=== PATIENT | female | born 1970 | race African-American/Black ===

== ENCOUNTER 2016-03-08 17:30 | Emergency (ER) | payer OTHER, MEDICARE ==
[~2016-03-08 17:30] MED LIST: FLEXERIL10 MG PO; MOBIC 15MG15 MG PO; TRAMADOL50 MG PO
[2016-03-08] MEDS ORDERED: ROBAXIN-750750 M1 PO (18:26)
[2016-03-08] MEDS ORDERED: PERCOCET 5-3251 EACH PO (18:26)
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
[2016-03-08 18:32] VITALS: BP 130/80
== END 2016-03-08 18:33 ==
LOC: ERH 17:30
DX: S29.012A Strain of muscle and tendon of back wall of thorax, initial encounter (principal); V47.6XXA Car passenger injured in collision with fixed or stationary object in traffic accident, initial encounter

== ENCOUNTER 2016-05-04 18:50 | Emergency (ER) | payer OTHER, MEDICARE ==
[~2016-05-04 18:50] MED LIST changes: +PERCOCET 5-3251 EACH PO; +ROBAXIN-750750 M1 PO
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
== END 2016-05-04 19:20 ==
LOC: ERH 18:50
DX: F18.129 Inhalant abuse with intoxication, unspecified (principal); F10.10 Alcohol abuse, uncomplicated
CPT/HCPCS: 80307

== ENCOUNTER 2016-09-27 17:30 | Emergency (ER) | payer OTHER, MEDICARE ==
--- NOTE | 2016-09-27 17:57 | ED HEADACHE COMPLAINT ---
History of Present Illness General Chief Complaint: Headache Stated Complaint: SIB DR VALLE FOR REPEATED HEADACHES Source: patient Exam Limitations: no limitations Vital Signs & Intake/Output Vital Signs & Intake/Output Vital Signs Date Time Temp Pulse Resp B/P B/P Pulse O2 O2 Flow FiO2 Mean Ox Delivery Rate 09/27 1910 98.0 68 20 122/68 100 Room Air 09/27 1735 97.2 52 16 120/82 98 Room Air Allergies Coded Allergies: aspirin (GI UPSET 09/27/16) Reconcile Medications Esomeprazole (Nexium) 40 MG CAPSULE.DR 1 CAP PO DAILY GI (Reported) Fiorinal (Fiorinal 50-325-40 MG Capsule) 50 MG-325 MG-40 MG CAPSULE 1 TAB PO TID PRN MIGRAINE Gabapentin 300 MG CAPSULE 1 CAP PO BID NERVE PAIN (Reported) Ketorolac Tromethamine 10 MG TABLET 1 TAB PO TID PRN MIGRAINE Meloxicam 15 MG TABLET 1 TAB PO DAILY PAIN/INFLAMMATION (Reported) Montelukast Sodium 10 MG TABLET 1 TAB PO DAILY ALLERGIES (Reported) Ondansetron HCl (Zofran) 4 MG TABLET 1 TAB PO Q6-8P PRN nausea Sumatriptan Succinate (Imitrex) 50 MG TABLET 1 TAB PO AD MIGRAINE TAKE ONE TAB BY MOUTH, IF NO BETTER IN 30 MINUTES REPEAT DO NOT TAKE MORE THAT TWO TABS IN ONE DAY Tramadol HCl 50 MG TABLET 1 TAB PO BID PRN PAIN (Reported) Triage Note: PT TO ED FOR HEADACHE X2 WEEKS, SIB DR VALLE. STATES SHE NORMALLY DOES NOT GET MEJIA'S. STATES PAIN IS 10/10. DR VALLE THINKS SHE MAY NEED A HEAD CT. Triage Nurses Notes Reviewed? yes Onset: Gradual Duration: getting worse Timing: recent history Severity Numbers: 8 Head Injury Location: global : No Patient currently breastfeeds: No HPI: Patient is a 45-year-old female who presents emergency room with concerns of a 2 week history of progressively worsening global generalized headache. Patient was evaluated today by primary care Dr. Valle and was advised to present to the emergency room for further evaluation and possible CT scan of head. Patient has associated symptoms of nausea photophobia and lightheaded sensation. Patient's tried [id number] NSAIDs and Tylenol with no relief of symptoms. Patient can however tolerate by mouth. Denies any acute onset or thunderclap headache or worse headache of life. Denies any fever chills neck pain (AMBAR VALENZUELA) Past History Travel History Traveled to [place] past 21 day No Medical History Any Pertinent Medical History? see below for history Neurological: NONE EENT: NONE Cardiovascular: NONE Respiratory: NONE Gastrointestinal: GERD Hepatic: NONE Musculoskeletal: CHRONIC RIGHT KNEE PAIN Psychiatric: NONE Endocrine: NONE Surgical History Surgical History: L shoulder RTC surgery Psychosocial History What is your primary language Icelandic Tobacco Use: Current Daily Use Daily Tobacco Use Amount/Type: => 5 Cigarettes daily Family History Hx Contributory? No (AMBAR VALENZUELA) Review of Systems Review of Systems Constitutional: Reports: no symptoms. Eyes: Reports: see HPI. Ears, Nose, Throat, Mouth: Reports: no symptoms. Respiratory: Reports: no symptoms. Cardiovascular: Reports: no symptoms. Gastrointestinal/Abdominal: Reports: see HPI. Genitourinary: Reports: no symptoms. Musculoskeletal: Reports: no symptoms. Skin: Reports: no symptoms. Neurological/Psychological: Reports: see HPI, headache. Hematologic/Endocrine: Reports: no symptoms. Endocrine: Reports: no symptoms. Immunologic/Allergic: Reports: no symptoms. All Other Systems: Reviewed and Negative (AMBAR VALENZUELA) Physical Exam Physical Exam General Appearance: no apparent distress, alert, comfortable Cranial Nerves: normal hearing, normal speech, PERRL Comments: Well-developed well-nourished person in no acute distress HEENT: Normal EENT exam, extraocular motion intact, no nystagmus. Pupils equally round and reactive to light and accommodation. Nose is atraumatic. External auditory canal and Tympanic membranes clear. Pharynx normal. No swelling or edema. Neck: Supple, no lymphadenopathy, normal range of motion without pain or tenderness Back: Nontender, no CVA tenderness. Cardiovascular: Regular rate and rhythms no murmurs rubs or gallops, normal JVP Respiratory: Chest nontender. No respiratory distress.breath sounds clear to auscultation bilaterally Abdomen: Soft, nontender nondistended, no appreciable organomegaly. Normal bowel sounds. No ascites Extremity: No edema, no calf tenderness to palpation, normal and equal pulses. Neuro: Alert oriented x3, motor sensory normal, cranial nerves II through XII grossly intact. Negative Romberg negative cerebellar testing Skin: No appreciable rash on exposed skin, skin is warm and dry. Psych: Mood and affect is normal, memory and judgment is normal. Core Measures Severe Sepsis Present: No Septic Shock Present: No (AMBAR VALENZUELA) Progress Differential Diagnosis: carotid dissection, cav sinus thromb, cluster MEJIA, encephalitis, IC mass/tumor, intracranial Hem., meningitis, migraine MEJIA, musculoskeletal pain, post LP headache, sinusitis, SSS thrombosis, subarach. Hem., tension MEJIA, temporal arteritis, TMJ syndrome, viral cephalgia Plan of Care: Current Medications Sig/Best Start time Last Medication Dose Stop Time Status Admin Ketorolac 30 MG ONCE ONE 09/27 1944 UNVr Tromethamine 09/27 1945 (Toradol) Patient on initial examination was in no apparent distress was alert and oriented and had unremarkable physical exam findings. CT scan was unremarkable. Discussed patient and CT scan results with Dr. Valle who advised patient to be given migraine headache prescription relief and to follow-up with neurology. Upon discharge patient looks well no apparent distress and will comply with discharge instructions and had no questions at this time there is no concerns of the CT scan findings of metabolic abnormalities or toxic exposure dictated by the radiologist (AMBAR VALENZUELA) Diagnostic Imaging: Viewed by Me: CT Scan. Radiology Impression: no acute abnormality Comments: PATIENT: VITOR TOMAS PRESENT AGE: 45 PATIENT ACCOUNT NO: [id number] : 70 LOCATION: [facility] ORDERING PHYSICIAN: ALEX GRAY MD SERVICE DATE: 09/27/16 EXAM TYPE: CAT - CT HEAD WO IV CONTRAST EXAMINATION: CT HEAD WITHOUT CONTRAST CLINICAL INFORMATION: Headache x2 weeks. COMPARISON: No relevant prior imaging available. TECHNIQUE: Contiguous axial imaging was performed from the skull base to vertex without intravenous administration of contrast. DLP: 539.75 mGy-cm FINDINGS: There is no acute intracranial hemorrhage or abnormal extra-axial collection. No intracranial mass effect or midline shift. Lateral and third ventricles are normal. No hydrocephalus. Mahmood-white matter differentiation is preserved and there is no evidence of acute territorial infarct. Symmetric application visualized within the lentiform nuclei. The calvarium and skull base are intact. Mastoid air cells and middle ear cavities are well aerated. Visualized paranasal sinuses are well aerated. IMPRESSION: There is symmetric calcifications within the lentiform nuclei. These findings are nonspecific. They may be idiopathic or related to an underlying metabolic disorder or history of toxic exposure therefore clinical correlation is recommended. Otherwise unremarkable examination. Specifically no evidence of acute territorial infarct or hemorrhage. DICTATED BY: CRIS CARREON,ISRA Morales DATE/TIME DICTATED:09/27/161834 FOAM TANK LAMINATOR:SHIRA (AMBAR VALENZUELA) Departure Departure Disposition: HOME OR SELF CARE Condition: Stable Clinical Impression Primary Impression: Migraine Referrals: RENETTA CARREON,SUZE VALLE MD,NAREN Del Angel (PCP/Family) Additional Instructions: As discussed begin the prescription of ketorolac for headaches and begin the prescription if your set for breakthrough headache relief and the prescription of Imitrex for headache relief. If no better on Saturday follow-up with neurologist Dr. Myles for further evaluation treatment. If symptoms worsen or she develop any new concerning symptom return to emergency room Prescriptions are waiting at [facility] Begin the prescription of Zofran for nausea Departure Forms: Customer Survey General Discharge Information Prescriptions: Current Visit Scripts Ketorolac Tromethamine 1 TAB PO TID PRN MIGRAINE #15 TAB Sumatriptan Succinate (Imitrex) 1 TAB PO AD #9 TAB TAKE ONE TAB BY MOUTH, IF NO BETTER IN 30 MINUTES REPEAT DO NOT TAKE MORE THAT TWO TABS IN ONE DAY Fiorinal (Fiorinal 50-325-40 MG Capsule) 1 TAB PO TID PRN MIGRAINE #12 TAB Ondansetron HCl (Zofran) 1 TAB PO Q6-8P PRN nausea #15 TAB (AMBAR VALENZUELA) PA/ABRASIVE GRADER HELPER Co-Sign Statement Statement: ED Attending supervision documentation- [] I saw and evaluated the patient. I have also reviewed all the pertinent lab results and diagnostic results. I agree with the findings and the plan of care as documented in the PA's/ABRASIVE GRADER HELPER's documentation. [X] I have reviewed the ED Record and agree with the PA's/ABRASIVE GRADER HELPER's documentation. [] Additions or exceptions (if any) to the PAs/ABRASIVE GRADER HELPER's note and plan are summarized below: [] (MARINA CARREON,ALEX Curtis)
--- NOTE | 2016-09-27 18:43 | CT SCAN REPORT ---
EXAMINATION: CT HEAD WITHOUT CONTRAST CLINICAL INFORMATION: Headache x2 weeks. COMPARISON: No relevant prior imaging available. TECHNIQUE: Contiguous axial imaging was performed from the skull base to vertex without intravenous administration of contrast. DLP: 539.75 mGy-cm FINDINGS: There is no acute intracranial hemorrhage or abnormal extra-axial collection. No intracranial mass effect or midline shift. Lateral and third ventricles are normal. No hydrocephalus. Mahmood-white matter differentiation is preserved and there is no evidence of acute territorial infarct. Symmetric application visualized within the lentiform nuclei. The calvarium and skull base are intact. Mastoid air cells and middle ear cavities are well aerated. Visualized paranasal sinuses are well aerated. IMPRESSION: There is symmetric calcifications within the lentiform nuclei. These findings are nonspecific. They may be idiopathic or related to an underlying metabolic disorder or history of toxic exposure therefore clinical correlation is recommended. Otherwise unremarkable examination. Specifically no evidence of acute territorial infarct or hemorrhage.
[2016-09-27 19:10] VITALS: BP 122/68
[2016-09-27] MEDS ORDERED: MELOXICAM15 M1 PO (19:28)
[2016-09-27] MEDS ORDERED: GABAPENTIN300 M2 PO (19:28)
[2016-09-27] MEDS ORDERED: MONTELUKAST SOD10 M1 PO (19:29)
[2016-09-27] MEDS ORDERED: TRAMADOL HCL50 M1 PO (19:29)
[2016-09-27] MEDS ORDERED: NEXIUM40 M1 PO (19:29)
[2016-09-27] MEDS ORDERED: FIORINAL 50-321 EACH PO (19:54)
[2016-09-27] MEDS ORDERED: IMITREX50 M1 PO (19:54)
[2016-09-27] MEDS ORDERED: KETOROLAC TROME10 M1 PO (19:54)
[2016-09-27] MEDS ORDERED: ZOFRAN4 M2 PO (19:59)
== END 2016-09-27 20:11 ==
LOC: ERH 17:30
DX: G43.909 Migraine, unspecified, not intractable, without status migrainosus (principal)
CPT/HCPCS: 96372; J1885

== ENCOUNTER 2017-09-25 15:15 | Emergency (ER) | payer OTHER, MEDICARE ==
[~2017-09-25 15:15] MED LIST changes: +FIORINAL 50-321 EACH PO; +GABAPENTIN300 M2 PO; +IMITREX50 M1 PO; +KETOROLAC TROME10 M1 PO; +MELOXICAM15 M1 PO; +MONTELUKAST SOD10 M1 PO; +NEXIUM40 M1 PO; +TRAMADOL HCL50 M1 PO; +ZOFRAN4 M2 PO
[2017-09-25 15:27] VITALS: BP 106/74
--- NOTE | 2017-09-25 16:22 | RADIOLOGY REPORT ---
EXAMINATION: XR KNEE, LEFT CLINICAL INFORMATION: Knee sprain COMPARISON: 01/08/2013 TECHNIQUE: 5 views of the left knee. FINDINGS: Tricompartmental degenerative changes are seen, advanced since the prior study. The degenerative changes are characterized by joint space narrowing and osteophytes. No joint effusion. No radiographic evidence of acute displaced fracture or subluxation. Again noted is contour deformity along the lateral tibial plateau consistent with old fracture. IMPRESSION: 1. No radiographic evidence of acute fracture or subluxation. 2. Old lateral tibial plateau fracture. 3. Degenerative changes.
[2017-09-25] MEDS ORDERED: IBUPROFEN800 M1 PO (17:02)
[2017-09-25] MEDS ORDERED: TRAMADOL HCL50 M1 PO (17:02)
--- NOTE | 2017-09-25 17:03 | ED UPPER/LOWER EXTREMITY COMPL ---
History of Present Illness General Chief Complaint: Lower Extremity Injury Stated Complaint: L KNEE INJURY Source: patient Exam Limitations: no limitations Vital Signs & Intake/Output Vital Signs & Intake/Output Vital Signs Date Time Temp Pulse Resp B/P B/P Pulse O2 O2 Flow FiO2 Mean Ox Delivery Rate 09/25 1527 97.8 77 16 106/74 96 Room Air Allergies Coded Allergies: aspirin (GI UPSET 09/27/16) Reconcile Medications Esomeprazole (Nexium) 40 MG CAPSULE.DR 1 CAP PO DAILY GI (Reported) Fiorinal (Fiorinal 50-325-40 MG Capsule) 50 MG-325 MG-40 MG CAPSULE 1 TAB PO TID PRN MIGRAINE Gabapentin 300 MG CAPSULE 1 CAP PO BID NERVE PAIN (Reported) Ibuprofen 800 MG TABLET 1 TAB PO TID PAIN Ketorolac Tromethamine 10 MG TABLET 1 TAB PO TID PRN MIGRAINE Meloxicam 15 MG TABLET 1 TAB PO DAILY PAIN/INFLAMMATION (Reported) Montelukast Sodium 10 MG TABLET 1 TAB PO DAILY ALLERGIES (Reported) Ondansetron HCl (Zofran) 4 MG TABLET 1 TAB PO Q6-8P PRN nausea Sumatriptan Succinate (Imitrex) 50 MG TABLET 1 TAB PO AD MIGRAINE TAKE ONE TAB BY MOUTH, IF NO BETTER IN 30 MINUTES REPEAT DO NOT TAKE MORE THAT TWO TABS IN ONE DAY Tramadol HCl 50 MG TABLET 1 TAB PO BID PRN PAIN (Reported) Tramadol HCl 50 MG TABLET 1-2 TAB PO BIDP PRN PAIN Triage Note: PT STATES SHE TWISTED HER LEFT KNEE WHILE WALKING DOWN STEPS YESTERDAY. TOOK ALEVE W/O RELIEF. WEARING OWN KNEE BRACE. ABLE TO WEIGHT BEAR. Triage Nurses Notes Reviewed? yes Onset: Abrupt Duration: day(s):, constant Timing: single episode today Severity: mild, moderate Pain/Injury Location: Left: Knee. No Modifying Factors: none HPI: 46-year-old female comes into the emergency room for further evaluation of left knee pain. Patient reports that she was walking down a step and twisted her left knee and felt a snap. She's had some associated pain since then with difficulty walking. Denies any injury or any other associated symptoms. (Vaibhav Abarca) Past History Travel History Traveled to [place] past 21 day No Medical History Any Pertinent Medical History? see below for history Neurological: NONE EENT: NONE Cardiovascular: NONE Respiratory: NONE Gastrointestinal: GERD Hepatic: NONE Musculoskeletal: CHRONIC RIGHT KNEE PAIN Psychiatric: NONE Endocrine: NONE Surgical History Surgical History: L shoulder RTC surgery Psychosocial History What is your primary language [place] Citizen Tobacco Use: Current Daily Use Daily Tobacco Use Amount/Type: => 5 Cigarettes daily Family History Hx Contributory? No (Vaibhav Abarca) Review of Systems Review of Systems Constitutional: Reports: no symptoms. EENTM: Reports: no symptoms. Respiratory: Reports: no symptoms. Cardiovascular: Reports: no symptoms. Gastrointestinal/Abdominal: Reports: no symptoms. Genitourinary: Reports: no symptoms. Musculoskeletal: Reports: see HPI. Skin: Reports: no symptoms. Neurological/Psychological: Reports: no symptoms. Hematologic/Endocrine: Reports: no symptoms. Immunological: Reports: no symptoms. All Other Systems: Reviewed and Negative (Vaibhav Abarca) Physical Exam Physical Exam General Appearance: well developed/nourished, mild distress Head: atraumatic Eyes: Bilateral: normal appearance. Ears, Nose, Throat: normal ENT inspection, hearing grossly normal Neck: normal inspection Cardiovascular/Respiratory: no respiratory distress Back: normal inspection Knee Left: soft tissue tenderness, limited range of motion Neurologic/Tendon: normal sensation, normal motor functions, normal tendon functions, responds to pain, no evidence tendon injury, no pulse deficit Skin: intact, normal color, warm/dry (Vaibhav Abarca) Progress Differential Diagnosis: contusion, dislocation, fracture, gout, septic arthritis , sprain, tendon injury Plan of Care: 09/25/2017 5:11:38 PM Patient clinically looks well. In no apparent distress. Nontoxic-appearing. Diagnostic Imaging: Viewed by Me: Radiology Read. Discussed w/RAD: Radiology Read. Radiology Impression: PATIENT: VITOR TOMAS PRESENT AGE: 46 PATIENT ACCOUNT NO: [id number] : 70 LOCATION: [facility] ORDERING PHYSICIAN: Collin Cunha DO SERVICE DATE: 09/25/17 EXAM TYPE: RAD - XRY-KNEE COMPLETE LEFT EXAMINATION: XR KNEE, LEFT CLINICAL INFORMATION: Knee sprain COMPARISON: 01/08/2013 TECHNIQUE: 5 views of the left knee. FINDINGS: Tricompartmental degenerative changes are seen, advanced since the prior study. The degenerative changes are characterized by joint space narrowing and osteophytes. No joint effusion. No radiographic evidence of acute displaced fracture or subluxation. Again noted is contour deformity along the lateral tibial plateau consistent with old fracture. IMPRESSION: 1. No radiographic evidence of acute fracture or subluxation. 2. Old lateral tibial plateau fracture. 3. Degenerative changes. DICTATED BY: Giuliana Hood MD DATE/TIME DICTATED:09/25/171610 [employer] SAL[employer]:SHIRA DATE/TIME TRANSCRIBED:1610 CONFIDENTIAL, DO NOT COPY WITHOUT APPROPRIATE AUTHORIZATION. < Electronically signed in Other Vendor System> SIGNED BY: Giuliana Hood MD [id number] (Vaibhav Abarca) Departure Departure Disposition: HOME OR SELF CARE Condition: Stable Clinical Impression Primary Impression: Left knee sprain Referrals: Malka CARREON,Chavez Del Angel (PCP/Family) Additional Instructions: Take ibuprofen and tramadol as prescribed. Ice. Rest. Follow-up with orthopedic doctor as needed. Return if any other concerns. Please go over all results of today's visit with your primary care doctor. Contact your primary care doctor to let them know you were here in the emergency room. There may be nonspecific findings which may not be related to your visit today here in the emergency room but may require further evaluation and chronic monitoring by your primary care doctor. If you had a laceration today the chance of foreign body always remains. You should follow-up with your primary care doctor for recheck in 3-5 days for a wound check. If you had an x-ray done there is a chance that a fracture could have been missed on initial read and you should follow-up with your primary care doctor for repeat x-rays if symptoms persist. If your blood pressure was elevated here in the emergency room please have rechecked by [facility] primary care doctor within the next 48. If you were prescribed a narcotic here in the emergency room or any type of controlled substances you're not allowed to drive while taking this medication or operate any type of heavy machinery. Narcotics can make you feel lightheaded dizziness nausea and can cause constipation. You may need to sampler pickup a stool softener. Thank you for choosing [facility] emergency room. Please return to the emergency room immediately if you have any other concerns worsening of symptoms. Departure Forms: Customer Survey General Discharge Information Prescriptions: Current Visit Scripts Ibuprofen 1 TAB PO TID #30 TAB Tramadol HCl 1-2 TAB PO BIDP PRN PAIN #10 TAB (Vaibhav Abarca) PA/[facility] [employer] [facility] Co-Sign Statement Statement: ED Attending supervision documentation- [] I saw and evaluated the patient. I have also reviewed all the pertinent lab results and diagnostic results. I agree with the findings and the plan of care as documented in the PA's/[facility] [employer] [facility]ER's documentation. [x] I have reviewed the ED Record and agree with the PA's/[facility] [employer] [facility]ER's documentation. [] Additions or exceptions (if any) to the PAs/[facility] [employer] [facility]ER's note and plan are summarized below: [] (Bashir Shipley DO)
== END 2017-09-25 17:05 ==
LOC: ERH 15:15
DX: S83.92XA Sprain of unspecified site of left knee, initial encounter (principal); X50.9XXA Other and unspecified overexertion or strenuous movements or postures, initial encounter; Y93.01 Activity, walking, marching and hiking
CPT/HCPCS: 73562-LT